=== PATIENT | female | born 1950 | race Caucasian/White ===

== ENCOUNTER → 2019-01-23 | Emergency (ER) | payer OTHER ==
[~2019-01-23] VITALS: Ht 160 cm; Wt 77.4 kg
[~2019-01-23] MED LIST: CYCL10TA7 PO; DEXAMETHASONE 10 MG/ML 1 ML INJ IM ONE; KETOROLAC 30 MG INJ IM STA; NAPR-985 PO
[2019-01-23 14:02] VITALS: BP 160/80; PULSE 76; RESP 22; Ht 160 cm; Wt 77.4 kg
--- NOTE | 2019-01-23 15:40 | ERD ---
ER Documentation Chief Complaint Chief Complaint lo back pain x5yrs; hx arthritis. no relief w tylenol/ motrin. steady gait HPI 68-year-old female with no past medical history of osteoarthritis, with history of chronic back pain who presents with 5-day complaint of lower back pain. Patient describes lower back pain with radiation down right lower extremity. described as spasmic type pain which is worse with prolonged standing or walking. She otherwise denies lower extremity paresthesias or weakness, urinary or bowel incontinence, lower extremity swelling, abdominal pain, pelvic pain, urinary symptoms. Took Motrin and Tylenol which she states have not helped much with her discomfort and pain. Has struggled with with back pain several years, had MRIs in the past and was told she has osteoarthritis of the back but cannot recall any other findings. She otherwise is without complaint. Time examination patient nontoxic-appearing able to take multiple steps around examination room without issue. ROS All systems reviewed and are negative except as per history of present illness. Medications Home Meds Active Scripts Cyclobenzaprine Hcl* (Cyclobenzaprine Hcl*) 10 Mg Tablet, 10 MG PO TID, #15 TAB Prov:KARL STERLING PA-C 01/23/19 Naproxen* (Naprosyn*) 500 Mg Tablet, 500 MG PO BID PRN for PAIN AND/OR INFLAMMATION, #30 TAB Prov:KARL STERLING-Priscilla 01/23/19 Allergies Allergies: Coded Allergies: Penicillins (Verified Allergy, Unknown, 01/23/19) PMhx/Soc Hx Miscellaneous Medical Probl: Yes (ARTHRITIS) Hx Alcohol Use: No Hx Tobacco Use: Yes Smoking Status: Current some day smoker FmHx Family History: No diabetes, No coronary disease, No other Physical Exam Vitals Vital Signs Date Temp Pulse Resp B/P (MAP) Pulse Ox O2 O2 Flow FiO2 Time Delivery Rate 01/23/19 97.5 76 22 160/80 97 14:02 (106) Physical Exam Const: No acute distress Head: Atraumatic Eyes: Normal Conjunctiva ENT: Normal External Ears, Nose and Mouth. Neck: Full range of motion. No meningismus. Resp: Clear to auscultation bilaterally Cardio: Regular rate and rhythm, no murmurs Abd: Soft, non tender, non distended. Normal bowel sounds Skin: No petechiae or rashes Back: No midline or flank tenderness, full range of motion Ext: No cyanosis, or edema, negative straight leg test Neur: Awake and alert Psych: Normal Mood and Affect Results 24 hrs Current Medications Medications Dose Sig/[place] Start Time Status Last (Trade) Ordered Route PRN Stop Time Admin Dose Reason Admin Ketorolac 30 mg ONCE STAT 01/23/19 DC Tromethamine IM 15:27 01/23/19 (Toradol) 15:28 10 mg ONCE ONCE 01/23/19 Dexamethasone IM 15:30 01/23/19 (Decadron) 15:31 Procedures/MDM 68-year-old female with past medical history of chronic back pain and osteoarthritis. Low suspicion for acute cord compression or cauda equina at this time, given presentation and symptoms, including epidural abscess or hematoma. Patient has no history of malignancy, active or distant history. Patient has no unexplained weight loss. No recent fevers, rigors, malaise, or recent infection. No history of IVDU or skin-popping. Patient does not have any history concerning for saddle anesthesia/perianal sensory loss or complaining of decreased rectal tone. Patient does not have urinary retention or inability to control urine from overflow. Patient has no tenderness overlying spinous process. Patient has no focal weakness on examination. ED course/plan: Toradol and single dose of Decadron, will discharge on naproxen and Flexeril given spasmatic type pain, patient advised to follow-up with PMD and note specialist, strict return precautions explained Given exam and history, low suspicion for cord compression, cauda equina, epidural abscess/hematoma. Distally neurovascularly intact. Query likely musculoskeletal component. Discussed pain control,and follow up with PMD. Cautious return precautions discussed w/ full understanding DISPOSITION PLAN: We discussed follow up with the patient's primary care doctor within 24 to 48 hours. Patient counseled regarding my diagnostic impression and care plan. Prior to discharge all questions answered. Pt agrees with treatment plan and understands strict return precautions. Precautionary instructions provided including instructions to return to the ER if not improving or for any worsening or changing symptoms or concerns. Disclaimer: Inadvertent spelling and grammatical errors are likely due to EHR/dictation software use and do not reflect on the overall quality of patient care. Also, please note that the electronic time recorded on this note does not necessarily reflect the actual time of the patient encounter. Departure Diagnosis: Primary Impression: Back pain Condition: Stable Patient Instructions: Back Pain (Acute Or Chronic), Back Pain W/ Sciatica Referrals: [facility] YOU HAVE RECEIVED A MEDICAL SCREENING EXAM AND THE RESULTS INDICATE THAT YOU DO NOT HAVE A CONDITION THAT REQUIRES URGENT TREATMENT IN THE EMERGENCY DEPARTMENT. FURTHER EVALUATION AND TREATMENT OF YOUR CONDITION CAN WAIT UNTIL YOU ARE SEEN IN YOUR DOCTORS OFFICE WITHIN THE NEXT 1-2 DAYS. IT IS YOUR RESPONSIBILITY TO MAKE AN APPOINTMENT FOR FOLOW-UP CARE. IF YOU HAVE A PRIMARY DOCTOR --you should call your primary doctor and schedule an appointment IF YOU DO NOT HAVE A PRIMARY DOCTOR YOU CAN CALL OUR PHYSICIAN REFERRAL HOTLINE AT IF YOU CAN NOT AFFORD TO SEE A PHYSICIAN YOU CAN CHOSE FROM THE FOLLOWING [facility] [address] [facility]. [facility] [address] [facility] [address] [facility] [facility] [address] [facility] [address] [facility] [address] [facility]. [facility]. [address] Additional Instructions: Call your primary care doctor TOMORROW for an appointment during the next 2-3 days.See the doctor sooner or return here if your condition worsens before your appointment time. Follow-up with your PMD or note specialist. KARL STERLING PA-C January 23, 2019 15:40
== END | disposition home or self-care (01) ==
LOC: FTE 13:49
DX: M54.5 Low back pain (principal); F17.210 Nicotine dependence, cigarettes, uncomplicated
CPT/HCPCS: 96372; 99284; J1100; J1885